=== PATIENT | female | born 1965 | race Two or more races ===

== ENCOUNTER 2023-12-15 16:00 | Outpatient (CLI) | payer OTHER | END 2023-12-15 16:01 | disposition home or self-care (01) | LOC: CSHSLEEP 16:00 | PROVIDERS: ATTEND Student in an Organized Health Care Education/Training Program | DX: G47.33 Obstructive sleep apnea (adult) (pediatric) (principal); R53.83 Other fatigue; E66.9 Obesity, unspecified; Z68.41 Body mass index [BMI] 40.0-44.9, adult; R06.83 Snoring; G47.00 Insomnia, unspecified; R35.1 Nocturia; I10 Essential (primary) hypertension | CPT/HCPCS: 95811 ==